=== PATIENT | female | born 1995 | race Caucasian/White ===

== ENCOUNTER → 2017-02-20 | Outpatient (CLI) | payer OTHER ==
--- NOTE | 2017-02-20 20:47 | REP ---
Clinical: Pain . Technique: AP, lateral, bilateral oblique views right foot. Findings: The osseous structures and joint spaces are intact and normal. There is no evidence for acute fracture or dislocation. Surrounding soft tissues are unremarkable. No subcutaneous emphysema or radiodense foreign body. Impression: Normal examination. No acute fracture or dislocation. Signed by Uvaldo Renae MD 02/20/2017 05:30 P
== END ==
LOC: M RAD 07:48
PROVIDERS: ATTEND Physician Assistant
DX: M79.671 Pain in right foot (principal)

== ENCOUNTER → 2017-06-23 | Outpatient (CLI) | payer OTHER ==
[2017-06-23 09:37] LABS: MEAN CORPUSCULAR HEMOGLOBIN 28.9 pg (27.0-33.0); MEAN CORPUSCULAR HGB CONC 33.3 g/dl (32.0-36.5); MEAN CORPUSCULAR VOLUME 86.7 fl (80.0-96.0); WHITE BLOOD COUNT 7.6 K/mm3 (4.0-10.0)
[2017-06-23 09:50] LABS: ALBUMIN 3.7 GM/DL (3.2-5.2); ALBUMIN/GLOBULIN RATIO 1.06 (1.00-1.93); ALKALINE PHOSPHATASE 40 U/L (45-117); ALT/SGPT 17 U/L (12-78); ANION GAP 10 MEQ/L (8-16); AST/SGOT 22 U/L (15-37); BILIRUBIN,TOTAL 0.5 MG/DL (0.2-1.0); BLOOD UREA NITROGEN 10 MG/DL (7-18); CALCIUM LEVEL 8.5 MG/DL (8.5-10.1); CARBON DIOXIDE LEVEL 25 MEQ/L (21-32); CHLORIDE LEVEL 107 MEQ/L (98-107); CHOLESTEROL LEVEL 172 MG/DL (<200); CREATININE FOR GFR 0.92 MG/DL (0.55-1.02); GLOMERULAR FILTRATION RATE > 60.0 (>60); GLUCOSE, FASTING 82 MG/DL (70-105); MAGNESIUM LEVEL 1.9 MG/DL (1.8-2.4); SODIUM LEVEL 142 MEQ/L (136-145); TOTAL PROTEIN 7.2 GM/DL (6.4-8.2); TRIGLYCERIDES LEVEL 70 MG/DL (<150)
== END ==
LOC: M WUC 08:07
PROVIDERS: ATTEND Physician Assistant
DX: Z30.09 Encounter for other general counseling and advice on contraception (principal)

== ENCOUNTER → 2018-05-19 | Outpatient (REF) | payer OTHER ==
[2018-05-19 14:52] LABS: HEMATOCRIT 39.3 % (36.0-47.0); HEMOGLOBIN 12.3 g/dl (12.0-15.5); MEAN CORPUSCULAR HEMOGLOBIN 23.3 pg (27.0-33.0); MEAN CORPUSCULAR HGB CONC 31.3 g/dl (32.0-36.5); MEAN CORPUSCULAR VOLUME 74.4 fl (80.0-96.0); PLATELET COUNT, AUTOMATED 381 10^3/uL (150-450); RED BLOOD COUNT 5.28 10^6/uL (4.00-5.40); WHITE BLOOD COUNT 7.8 10^3/uL (4.0-10.0)
[2018-05-19 15:09] LABS: FERRITIN 4 NG/ML (8-252); IRON (FE) 158 UG/DL (50-170); PERCENT SATURATION 27.6 % (13.2-45.0); TOTAL IRON BINDING CAPACITY 572 UG/DL (250-450)
== END ==
LOC: M SFHCLACO 11:00
DX: E61.1 Iron deficiency (principal)

== ENCOUNTER 2019-11-12 10:37 | Inpatient (IN) | payer OTHER ==
[~2019-11-12] VITALS: Ht 170.2 cm; Wt 76.5 kg
[2019-11-12] VITALS (26 sets, daily range): BP systolic 98–134; BP diastolic 54–86
[2019-11-12] MEDS ORDERED: PRENTAB9 PO (10:56)
[2019-11-12] MEDS ORDERED: TUMS750C5 PO (10:56)
[2019-11-12] MEDS ORDERED: LR 1,000 ML IV SCH (14:25)
[2019-11-12] MEDS ORDERED: LACTATED RINGER'S 1000 ML IV ONE (14:30)
[2019-11-12] MEDS ORDERED: VANCOMYCIN HCL 1,000 MG, VIAL MATE ADAPTER 1 EACH in D5W 250 ML IV SCH (15:00)
[2019-11-12 15:07] LABS: HEMATOCRIT 39.8 % (36.0-47.0); HEMOGLOBIN 13.5 g/dl (12.0-15.5); MEAN CORPUSCULAR HEMOGLOBIN 29.7 pg (27.0-33.0); MEAN CORPUSCULAR HGB CONC 33.9 g/dl (32.0-36.5); MEAN CORPUSCULAR VOLUME 87.5 fl (80.0-96.0); PLATELET COUNT, AUTOMATED 224 10^3/uL (150-450); RED BLOOD COUNT 4.55 10^6/uL (4.00-5.40); WHITE BLOOD COUNT 12.3 10^3/uL (4.0-10.0)
[2019-11-12] MEDS ORDERED: ONDANSETRON 4MG/2ML VIAL (J2405) IV PRN ×2 (15:15→21:00)
--- NOTE | 2019-11-12 18:40 | HPE ---
DATE OF ADMISSION: 11/12/2019 HISTORY: This lady is a 24-year-old 1, para 0, last menstrual period (LMP) 02/07/2019, estimated date of confinement (EDC) 11/14/2019 at 39 and 6 weeks of gestation with history of contractions 4-6 minutes apart, moderate intensity, was checked in the office by the licensed practical nurse and found to be 3-4 cm dilated. She is group B Streptococcus (GBS) positive and she had a bulging bag of moyer. RISK FACTORS: She had previous Kawasaki's disease and she is Rh negative and GBS positive. Susceptibility is unknown. She has ampicillin/penicillin allergy. LABORATORIES: AB negative. HIV negative. Hepatitis negative. Rapid plasma reagin (RPR) negative. Rubella immune. Varicella immune. Gonorrhea and chlamydia is negative. 1-hour glucose was 103. GBS is positive. Blood pressure is 119/73, respirations 18, pulse 57, temperature 97.6. Urine is 10/15, pH 5, trace protein. On examination she appears to be distressed. Symphysis fundus height is 40, vertex presenting. Category one strip. Four quadrant bowel sounds are noted. PELVIC EXAMINATION: Bulging bag, 5-6 cm, zero station, -100 percent effaced and the contractions are intensifying. Category one strip. She is normocephalic, atraumatic. Neck full range of motion. Pupils equal and reactive to light. Distal pulses symmetric. No evidence of deep venous thrombosis (DVT), pulmonary embolism (PE) or superficial phlebitis. Chest is clear bilaterally to bases. No wheezes or rhonchi. No costovertebral angle (CVA) tenderness. ABDOMEN: Soft. Four quadrant bowel sounds are noted. She has no rashes, lesions or pruritus. No arthralgia, myalgia. No complaint of joint pain. No complaint of cough, wheeze, shortness of breath or dyspnea on exertion. No nausea, vomiting, diarrhea or constipation. No bleeding. Neuro complete. She has no diabetic issues. No heat or cold issues. GYNECOLOGICAL HISTORY: Unremarkable. PAST MEDICAL HISTORY: Had previously Kawasaki's disease. PAST SURGICAL HISTORY: Unremarkable. FAMILY HISTORY: Noncontributory. She does not smoke, drink or abuse drugs. No domestic violence. No vaping. 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 Has mentioned allergies to penicillin and ampicillin. We discussed the consent for vaginal delivery which is through the vagina, use of forceps or vacuum devices which, if needed, for maternal or indications, they are devices that can assist with vaginal delivery when normal pushing efforts cannot achieve delivery on their own or when delivery is needed in emergency for baby's well-being. Medications used to augment or induce labor to achieve vaginal delivery may be instituted. Episiotomy may or may not be required to allow baby to deliver vaginally. In some cases, emergencies require emergency section, which were done for maternal and indications only. section is delivery through the abdomen and the risk factors will be discussed with your practitioner. The risk of vaginal delivery include, but not limited to bleeding, infection, injury to the vagina, pelvic structures, injury to baby, damage to the uterus, reaction to anesthesia, uterine rupture, risk of hysterectomy for life-threatening bleeding indications or maternal . section may result in hysterectomy because of intractable bleeding, hemorrhage, heart rate abnormalities, need for repair of increased risk of perineal vaginal lacerations, risk of bowel or bladder injuries. In the use of vacuum or forceps, also injury to the with scratches, hematomas to the head or even intracranial hematomas. The patient expressed understanding, verbalizing positive. Plan is to hydrate the patient, GBS prophylaxis and anticipate progress.
[2019-11-12] MEDS ORDERED: OXYTOCIN DRIP 30 UNITS in IV 1 EA IV SCH ×2 (19:00→23:13)
--- NOTE | 2019-11-12 19:17 | IPN ---
DATE: 11/12/2019 This lady is a 1, para 0 at 39 and 6 admitted in spontaneous labor. She is on prophylactic antibiotics for GBS. The patient is allergic to PENICILLIN and AMPICILLIN. She had a spontaneous rupture of membranes and meconium-stained liquor. On evaluation by nurses, she is still 5-6, moderate-intensity contractions, vertex presenting. Category 1 strip. Blood pressure is 132/83, respirations 18, pulse 75, temperature 98.0. She is going to require some Pitocin augmentation to enhance her contractions, putting them closer together in a lengthier duration. At the present time, safe to proceed. The patient expressed understanding of plan of care.
[2019-11-12] MEDS ORDERED: FENTANYL 2MCG/ML ROPIVACAINE 0.2% IN 0.9% NACL 100ML IVBAG As Ordered ONE (19:37)
[2019-11-12] MEDS ORDERED: LACTATED RINGER'S 1000 ML IV PRN (21:00)
[2019-11-12] MEDS ORDERED: FENTANYL/ROPIVACAINE/NACL BAG 100 ML EPIDURAL SCH (21:00)
[2019-11-12] MEDS ORDERED: ePHEDrine SULFATE 25 MG/5 ML(5MG/ML) SYRINGE IV PRN (21:00)
[2019-11-12] MEDS ORDERED: REFRIGERATOR IV KEYS XX PRN (21:00)
[2019-11-12] MEDS ORDERED: EPIDURAL COMMENT XX SCH (21:00)
[2019-11-12] MEDS ORDERED: EPIDURAL/PCA KEYS XX PRN (21:00)
[2019-11-12] MEDS ORDERED: diphenhydrAMINE INJ 50MG/ML VIAL (J1200) IV PRN (21:00)
[2019-11-12] MEDS ORDERED: NALOXONE INJ 0.4 MG/1 ML VIAL (J2310) IV PRN (21:00)
[2019-11-12] MEDS ORDERED: IBUPROFEN 800 MG TAB PO PRN (23:15)
[2019-11-12] MEDS ORDERED: MOM 30ML SUSPENSION UDC PO PRN (23:15)
[2019-11-12] MEDS ORDERED: METHYLERGONOVINE MALEATE 0.2 MG TAB PO PRN (23:15)
[2019-11-12] MEDS ORDERED: IBUPROFEN 600 MG TAB PO PRN (23:15)
[2019-11-12] MEDS ORDERED: ACETAMINOPHEN TAB 650MG DOSE (2X325MG) PO PRN (23:15)
[2019-11-12] MEDS ORDERED: MEASLES,MUMPS,RUBELLA VACCINE INJ (MMR-II) (90707) SC SCH (23:15)
[2019-11-12] MEDS ORDERED: RHOGAM 300 MCG (1500 IU) INJ (J2790) IM SCH (23:15)
[2019-11-12] MEDS ORDERED: DIBUCAINE 1% OINTMENT 30GM TOP PRN (23:15)
[2019-11-12] MEDS ORDERED: ACETAMINOPHEN 500 MG TAB PO PRN (23:15)
[2019-11-12] MEDS ORDERED: DOCUSATE SODIUM 100 MG CAP PO PRN (23:15)
[2019-11-12] MEDS ORDERED: OXYTOCIN INJ 10 UNITS/ML VIAL (J2590) IV ONE (23:15)
[2019-11-12] MEDS ORDERED: ANUSOL HC CREAM 30GM TOP PRN (23:15)
--- NOTE | 2019-11-12 23:35 | DN ---
DATE: 11/12/2019 DELIVERY NOTE This lady is a 1, para 0 admitted at 40 weeks in spontaneous labor. With epidural in place, had a spontaneous vaginal delivery of a live male weighing 6 pounds 15 ounces, 3140 grams, scores of 8 and 9 at one and five minutes respectively. Cord was around the neck times one, had meconium as well as terminal meconium. Baby had suction at the perineum with the bulb. The placenta delivered spontaneously thereafter, three-vessel cord, membranes and tissues intact. The uterus contracted well down on Pitocin. Examination of anterior, posterior, and lateral brown were complete. Sphincter was tight. Uterus was well contracted. She had some labial abrasions on the right side, not requiring any suturing. The patient and baby tolerated procedure well. She was Group B Streptococcus (GBS) positive, treated with vancomycin as she has an allergy to penicillin and ampicillin. She had a spontaneous rupture of members prior to the 4-hour core window. We are awaiting the blood gas results.
[2019-11-12 23:54] LABS: CORD GAS ABE A -7.4; CORD GAS O2 SAT A < 15.0 %; CORD GAS PCO2 A 78.2 mmHg; CORD GAS PH A 7.105 UNITS; CORD GAS PO2 A < 10.0 mmHg; CORD GAS TCO2 A 26.4 MEQ/L
[2019-11-12 23:55] LABS: CORD GAS ABE V -7.4; CORD GAS HCO3 V 19.1 MEQ/L; CORD GAS O2 SAT V 53.8 %; CORD GAS PH V 7.275 UNITS; CORD GAS SBC V 17.5 MEQ/L; CORD GAS TCO2 V 20.4 MEQ/L
[2019-11-13 00:06] VITALS: BP 116/67
[2019-11-13 01:25] VITALS: BP 112/68
[2019-11-13] MEDS ORDERED: OXYTOCIN INJ 10 UNITS/ML VIAL (J2590) As Ordered ONE (01:31)
[2019-11-13 06:00] VITALS: BP 116/63
[2019-11-13 06:54] LABS: HEMATOCRIT 35.5 % (36.0-47.0); HEMOGLOBIN 11.9 g/dl (12.0-15.5); MEAN CORPUSCULAR HEMOGLOBIN 29.4 pg (27.0-33.0); MEAN CORPUSCULAR HGB CONC 33.5 g/dl (32.0-36.5); MEAN CORPUSCULAR VOLUME 87.7 fl (80.0-96.0); PLATELET COUNT, AUTOMATED 187 10^3/uL (150-450); RED BLOOD COUNT 4.05 10^6/uL (4.00-5.40); WHITE BLOOD COUNT 16.7 10^3/uL (4.0-10.0)
[2019-11-13] MEDS ORDERED: PRENATAL VITAMINS CHEWABLE TABLET PO SCH (09:00)
[2019-11-13 18:00] VITALS: BP 109/57
[2019-11-14 06:00] VITALS: BP 113/65
[2019-11-14] MEDS ORDERED: IBUP-1022 PO (07:29)
[2019-11-14] MEDS ORDERED: ACET1TAB55 PO (07:29)
[2019-11-14] MEDS ORDERED: DOCU100C16 PO (07:29)
--- NOTE | 2019-11-14 07:40 | IPNPDOC ---
Progress Note Date of Service: Nov 14, 2019 Day#: 2 Progress Note SUBJECT: Ms. Correia is a 24yo G1 now P1 s/p uncomplicated at 40wks gestation at 2300 on 12 November 2019. She delivered a viable male infant, 6lbs 15o, 3140g, with only right labial abrasions not requiring repair. She is currently without issue, reports lochia is WNL, voiding and passing flatus. Patient is ambulating well and tolerating regular diet. OBJECTIVE: VITAL SIGNS: Within normal limits, afebrile. Alert and oriented times three. Observed nonlabored breathing Heart rate: WNL Abdomen: Fundus firm at U-2 Minimal lochia. ASSESSMENT: PP Day #2, normal uterine involution, recovering as expected and overall doing well. Exclusive without concern. PLAN: 1. Discharge to home today. 2. Tylenol and Motrin for pain. 3. Encourage breast feeding and ambulation. 4. Declines BC at this time. 5. Routine PP visit in 6 weeks in clinic. 6. Discussed return precautions at length. VS, I&O, 24H, Fishbone Vital Signs/I&O Vital Signs Date Time Temp Pulse Resp B/P (MAP) Pulse Ox O2 Delivery O2 Flow Rate FiO2 11/14/19 06:00 98.1 50 16 113/65 (81) 99 Room Air ROBBIE SANTOYO CNM Nov 14, 2019 07:40
--- NOTE | 2019-11-14 07:49 | OBDS ---
[facility] Obstetrical Discharge Sum. Obstetrical Discharge Summary Date: Nov 14, 2019 VDRL: Non-Reactive Rh: Negative Rubella: Immune Sex: Male Weight: pounds (6), ounces (15), grams (3140) Anesthesia: Other (Epidural) A/P, Post Course List any complications Admission diagnosis: Labor Discharge diagnosis: Spontaneous Vaginal Deliver Condition at Discharge: Stable Discharge Instructions: Encourage frequent , increasing activity as tolerated, hydration and balanced diet. Discussed danger s/sx (mastitis, fever of 100.4, foul odor discharge, uterine pain, bleeding precaution, PPD). Nothing in the vagina for 4-6 weeks. Activity: Increase as tolerated. Diet: Regular Medications: Tylenol, Colace, Motrin Follow-up: 6-8 week follow-up with [facility] (call to schedule) ROBBIE SANTOYO CNM Nov 14, 2019 07:49
--- NOTE | 2019-11-16 15:47 | IPN ---
DATE: 11/12/2019 This patient has requested circumcision of her male infant. After discussing risks and benefits of circumcision, the medical and nonmedical indications, the penile block and aftercare, expressed understanding of penile block and aftercare, signed the consent form. All questions were answered. 20-minute discussion. We await clearance by the pull over machine operator.
== END 2019-11-14 12:00 | disposition home or self-care (01) | DRG 807 ==
LOC: M LDO 10:37 → M LDI 14:17 → M OBS 11-13 02:15
PROVIDERS: ADMIT Obstetrics & Gynecology; ATTEND Obstetrics & Gynecology
PROC: 10E0XZZ Delivery of Products of Conception, External Approach (ICD-10-PCS; principal; 2019-11-12)
DX: O99.824 Streptococcus B carrier state complicating childbirth (principal); Z37.0 Single live birth; Z3A.39 39 weeks gestation of pregnancy; O77.0 Labor and delivery complicated by meconium in amniotic fluid; O69.81X0 Labor and delivery complicated by cord around neck, without compression, not applicable or unspecified